=== PATIENT | female | born 1985 | race Caucasian/White ===

== ENCOUNTER 2023-12-09 02:53 | Inpatient (IN) ==
[2023-12-09] MEDS ORDERED: LIDOCAINE 1% LOCAL 20 ML VIAL INFIL PRN (03:21)
[2023-12-09] MEDS: LACTATED RINGER'S 1,000 ML IV PRN (03:30)
--- NOTE | 2023-12-09 03:52 | Obstetrical Progress Note ---
Date of Service December 09, 2023 Assessment & Plan (1) : Plan: met pt and spouse FHR; CAT1 Ctx; 1-3min VE; /0 Admit and anticipate VD Admission and Anticipated Discharge Date Admission Date: December 09, 2023 Results & Data Vital Signs (Past 12 Hours) Vital Signs Temp Pulse Resp BP 12/09/23 03:36 36.6 C 20 12/09/23 03:20 79 114/68
[2023-12-09 04:20] LABS: Hematocrit (blood only) 38.6 % (37.0-47.0); Hemoglobin 14.5 g/dl (12.0-16.0); Mean Corpuscular Hemoglobin 33.7 pg (25.0-34.0); Mean Corpuscular Hgb Conc 37.6 g/dL (32.0-36.0); Mean Corpuscular Volume 89.8 fL (80.0-100.0); Mean Platelet Volume 10.5 fL (9.4-12.4); Platelet Count 207 K/uL (130-400); RDW Coefficient of Variation 12.5 % (11.5-14.5); RDW Standard Deviation 40.8 fL (36.4-46.3)
[2023-12-09] MEDS ORDERED: BUPIVACAINE 0.25% PF 30 ML VIAL EPI PRN (04:25)
[2023-12-09] MEDS ORDERED: ePHEDrine sulfate 50 MG/ML AMP IV PRN (04:25)
[2023-12-09] MEDS ORDERED: ROPIVACAINE 0.5% PF 5 MG/ML 20 ML VIAL EPI PRN (04:25)
[2023-12-09] MEDS ORDERED: fentANYL 2 MCG/ML BUPIVacaine 0.125%-NSS 100ML BAG EPI PRN (04:25)
[2023-12-09] MEDS ORDERED: NALOXONE HCL 0.4 MG/1 ML VIAL/CARP IV PRN (04:25)
[2023-12-09] MEDS ORDERED: SODIUM CHLORIDE 0.9% PF INJ 10 ML VIAL EPI PRN (04:25)
[2023-12-09] MEDS ORDERED: fentaNYL citrate PF 100 MCG/2 ML VIAL EPI PRN (04:25)
[2023-12-09] MEDS ORDERED: NALBUPHINE HCL 5 MG in SYRINGE 0 ML IV PRN (04:25)
[2023-12-09] MEDS ORDERED: diphenhydrAMINE 50 MG/ML VIAL IV PRN (04:25)
[2023-12-09] MEDS ORDERED: NALOXONE HCL 1 MG in SODIUM CHLORIDE 0.9% 1,000 ML IV PRN (04:25)
[2023-12-09] MEDS ORDERED: LIDOCAINE 2% MPF LOCAL 5 ML VIAL EPI PRN (04:25)
--- NOTE | 2023-12-09 04:26 | Anesthesiology Consultation ---
Date of Service December 09, 2023 Assessment & Plan Chart Review Chart Review: Acceptable Risk for Labor Epidural Consults Requested none History Height/Weight Height: 5 ft 7 in Weight: 78.471 kg Allergies Allergy/AdvReac Type Severity Reaction Status Date / Time Penicillins Allergy Rash (as Verified 10/30/23 10:40 child) Medications Home Medications Medication Instructions Recorded Confirmed Last Taken 1 tab PO DAILY 10/30/23 10/30/23 Unknown Vitamin B-6 1 tab PO DAILY 10/30/23 10/30/23 Unknown calcium 1 tab PO DAILY 10/30/23 10/30/23 Unknown folic acid 1 tab PO DAILY 10/30/23 10/30/23 Unknown iron 1 tab PO DAILY 10/30/23 10/30/23 Unknown Past Medical History Medical History Anxiety and depression History of COVID-19 Early 08/2023: fever, loss of taste/smell, fatigue, congestion, cough > resolved Past Family History Family History Grandmother (Maternal) Breast cancer, Onset Age: 30 Other Diabetes Past Surgical History Surgical History H/O LEEP 11/22/18 - LUIS EDUARDO II History of [place] 2016 [place] [place] hardware used per patient History of colposcopy 10/14/18 - LUIS EDUARDO II History of hysteroscopy D&C Hx of LASIK Social History Smoking Status: Never smoker Do You Dip or Chew Tobacco: No Hx Alcohol Use: No Alcohol type: wine Hx Substance Use: No Physical Exam Vital Signs Last Vital Signs Temp 36.6 C 12/09/23 03:36 Pulse 79 12/09/23 03:20 Resp 20 12/09/23 03:36 BP 114/68 12/09/23 03:20 Testing Laboratory Results 12/09/23 04:00
[2023-12-09] MEDS: LIDOCAINE 2%/EPINEPHRINE 1:200,000 20 ML PF ONE (04:56)
[2023-12-09] MEDS: fentaNYL citrate PF 100 MCG/2 ML VIAL ONE (04:57)
[2023-12-09] MEDS: ePHEDrine sulfate 50 MG/ML AMP ONE (04:57)
[2023-12-09] MEDS: BUPIVACAINE 0.25% PF 30 ML VIAL ONE (04:57)
[2023-12-09] MEDS: SODIUM CHLORIDE 0.9% PF INJ 10 ML VIAL ONE (04:57)
[2023-12-09] MEDS: fentANYL 2 MCG/ML BUPIVacaine 0.125%-NSS 100ML BAG ONE (04:57)
[2023-12-09] MEDS ORDERED: OXYTOCIN 30 UNITS/NSS 30 UNITS/500 ML BAG IV PRN ×2 (07:11→11:26)
--- NOTE | 2023-12-09 07:52 | Obstetrical Progress Note ---
Date of Service December 09, 2023 Assessment & Plan (1) : Plan: Recurrent deep variables, possibly late decelerations Pt is on knee chest position VE; 10/100/+1 Plan Oxygen Terbutaline continue monitoring FHR Admission and Anticipated Discharge Date Admission Date: December 09, 2023 Results & Data Vital Signs (Past 12 Hours) Vital Signs Temp Pulse Resp BP Pulse Ox 12/09/23 07:47 97 12/09/23 07:47 98 H 12/09/23 07:42 98 12/09/23 07:42 82 12/09/23 07:40 55 L 12/09/23 07:40 128/59 L 12/09/23 07:37 96 12/09/23 07:37 72 12/09/23 07:32 95 12/09/23 07:32 84 12/09/23 07:27 95 12/09/23 07:27 71 12/09/23 07:22 95 12/09/23 07:22 71 12/09/23 07:22 36.7 C 70 18 106/63 95 12/09/23 07:17 98 12/09/23 07:17 70 12/09/23 07:12 96 12/09/23 07:12 71 12/09/23 07:08 66 12/09/23 07:08 109/56 L 12/09/23 07:07 98 12/09/23 07:07 66 12/09/23 07:02 98 12/09/23 07:02 83 12/09/23 06:57 99 12/09/23 06:57 150 H 12/09/23 06:55 91 H 12/09/23 06:55 106/56 L 12/09/23 06:52 99 12/09/23 06:52 101 H 12/09/23 06:47 98 12/09/23 06:47 67 12/09/23 06:42 98 12/09/23 06:42 67 12/09/23 06:38 95 H 12/09/23 06:38 115/67 12/09/23 06:37 99 12/09/23 06:37 141 H 12/09/23 06:32 98 12/09/23 06:32 76 12/09/23 06:27 96 12/09/23 06:27 145 H 12/09/23 06:24 71 12/09/23 06:24 101/63 12/09/23 06:22 97 12/09/23 06:22 78 12/09/23 06:17 97 12/09/23 06:17 70 12/09/23 06:12 96 12/09/23 06:12 94 H 12/09/23 06:07 97 12/09/23 06:07 94 H 12/09/23 06:07 112/67 12/09/23 06:02 97 12/09/23 06:02 79 12/09/23 05:57 98 12/09/23 05:57 94 H 12/09/23 05:53 156/114 H 12/09/23 05:52 95 12/09/23 05:52 72 12/09/23 05:47 97 12/09/23 05:47 91 H 12/09/23 05:42 96 12/09/23 05:42 101 H 12/09/23 05:37 96 12/09/23 05:37 93 H 12/09/23 05:37 118/64 12/09/23 05:33 94 12/09/23 05:33 118 H 12/09/23 05:32 96 12/09/23 05:32 82 12/09/23 05:27 96 12/09/23 05:27 77 12/09/23 05:23 82 12/09/23 05:23 108/68 12/09/23 05:22 96 12/09/23 05:22 87 12/09/23 05:17 96 12/09/23 05:17 72 12/09/23 05:12 97 12/09/23 05:12 76 12/09/23 05:07 99 12/09/23 05:07 75 12/09/23 05:02 100 12/09/23 05:02 65 12/09/23 05:00 18 12/09/23 05:00 37.0 C 18 12/09/23 05:00 70 12/09/23 05:00 111/66 12/09/23 04:57 100 12/09/23 04:57 62 12/09/23 04:56 63 12/09/23 04:56 124/64 12/09/23 04:52 100 12/09/23 04:52 77 12/09/23 04:51 78 03/13/24 04:51 131/70 12/09/23 04:48 90 12/09/23 04:48 132/73 12/09/23 04:47 100 12/09/23 04:47 85 12/09/23 04:45 81 12/09/23 04:45 130/75 12/09/23 04:42 100 12/09/23 04:42 95 H 12/09/23 03:36 36.6 C 20 12/09/23 03:20 79 114/68
[2023-12-09] MEDS: TERBUTALINE SULFATE 1 MG/ML VIAL SQ ONE (07:59)
--- NOTE | 2023-12-09 10:41 | Obstetrical Progress Note ---
Date of Service December 09, 2023 Assessment & Plan Admission and Anticipated Discharge Date Admission Date: December 09, 2023 Subjective I took signout from Dr. Aguilera who admitted her for labor. She is a 37-year-old G1, P0 at 40 weeks and 2 days of gestation. Her has been uncomplicated except AMA and NIPT testing was low risk. Denies medical problems and GBS negative. She has been fully dilated and was laboring down due to the variable decelerations with pushing earlier this morning. heart rate improved while laboring down and she started to have pressure. Nursing team started pushing with her about 20 minutes ago. Top of the scalp is visible with pushing. heart rate with a baseline of 140s, moderate variability, variable decels with some of the pushes with quick recovery. Continue to monitor closely, anticipate . Results & Data Vital Signs (Past 12 Hours) Vital Signs Temp Pulse Resp BP Pulse Ox 12/09/23 10:32 100 12/09/23 10:32 79 12/09/23 10:27 100 12/09/23 10:27 72 12/09/23 10:22 100 12/09/23 10:22 100 H 12/09/23 10:22 122/59 L 12/09/23 10:17 99 12/09/23 10:17 84 12/09/23 10:12 100 12/09/23 10:12 80 12/09/23 10:08 133 H 12/09/23 10:08 124/51 L 12/09/23 10:07 100 12/09/23 10:07 144 H 12/09/23 10:02 100 12/09/23 10:02 137 H 12/09/23 09:57 100 12/09/23 09:57 112 H 12/09/23 09:53 98 H 12/09/23 09:53 112/77 12/09/23 09:52 100 12/09/23 09:52 86 12/09/23 09:47 99 12/09/23 09:47 82 12/09/23 09:42 99 12/09/23 09:42 94 H 12/09/23 09:37 99 12/09/23 09:37 78 12/09/23 09:37 110/64 12/09/23 09:32 97 12/09/23 09:32 86 12/09/23 09:27 97 12/09/23 09:27 92 H 12/09/23 09:22 97 12/09/23 09:22 92 H 12/09/23 09:22 110/64 12/09/23 09:17 97 12/09/23 09:17 91 H 12/09/23 09:12 98 12/09/23 09:12 85 12/09/23 09:07 98 12/09/23 09:07 100 H 12/09/23 09:07 86 12/09/23 09:07 118/64 12/09/23 09:02 98 12/09/23 09:02 98 H 12/09/23 08:57 98 12/09/23 08:57 91 H 12/09/23 08:52 98 12/09/23 08:52 95 H 12/09/23 08:52 113/58 L 12/09/23 08:47 98 12/09/23 08:47 85 12/09/23 08:42 99 12/09/23 08:42 90 12/09/23 08:38 86 12/09/23 08:38 110/55 L 12/09/23 08:37 99 12/09/23 08:37 85 12/09/23 08:32 99 12/09/23 08:32 86 12/09/23 08:27 98 12/09/23 08:27 76 12/09/23 08:23 75 12/09/23 08:23 113/62 12/09/23 08:22 100 12/09/23 08:22 75 12/09/23 08:17 100 12/09/23 08:17 81 12/09/23 08:12 100 12/09/23 08:12 94 H 12/09/23 08:07 99 12/09/23 08:07 71 12/09/23 08:07 70 12/09/23 08:07 108/62 12/09/23 08:02 99 12/09/23 08:02 75 12/09/23 07:57 100 12/09/23 07:57 71 12/09/23 07:54 81 12/09/23 07:54 106/63 12/09/23 07:52 96 12/09/23 07:52 85 12/09/23 07:47 97 12/09/23 07:47 98 H 12/09/23 07:42 98 12/09/23 07:42 82 12/09/23 07:40 55 L 12/09/23 07:40 128/59 L 12/09/23 07:37 96 12/09/23 07:37 72 12/09/23 07:32 95 12/09/23 07:32 84 12/09/23 07:27 95 12/09/23 07:27 71 12/09/23 07:22 95 12/09/23 07:22 71 12/09/23 07:22 36.7 C 70 18 106/63 95 12/09/23 07:17 98 12/09/23 07:17 70 12/09/23 07:12 96 12/09/23 07:12 71 12/09/23 07:08 66 12/09/23 07:08 109/56 L 12/09/23 07:07 98 12/09/23 07:07 66 12/09/23 07:02 98 12/09/23 07:02 83 12/09/23 06:57 99 12/09/23 06:57 150 H 12/09/23 06:55 91 H 12/09/23 06:55 106/56 L 12/09/23 06:52 99 12/09/23 06:52 101 H 12/09/23 06:47 98 12/09/23 06:47 67 12/09/23 06:42 98 12/09/23 06:42 67 12/09/23 06:38 95 H 12/09/23 06:38 115/67 12/09/23 06:37 99 12/09/23 06:37 141 H 12/09/23 06:32 98 12/09/23 06:32 76 12/09/23 06:27 96 12/09/23 06:27 145 H 12/09/23 06:24 71 12/09/23 06:24 101/63 12/09/23 06:22 97 12/09/23 06:22 78 12/09/23 06:17 97 12/09/23 06:17 70 12/09/23 06:12 96 12/09/23 06:12 94 H 12/09/23 06:07 97 12/09/23 06:07 94 H 12/09/23 06:07 112/67 12/09/23 06:02 97 12/09/23 06:02 79 12/09/23 05:57 98 12/09/23 05:57 94 H 12/09/23 05:53 156/114 H 12/09/23 05:52 95 12/09/23 05:52 72 12/09/23 05:47 97 12/09/23 05:47 91 H 12/09/23 05:42 96 12/09/23 05:42 101 H 12/09/23 05:37 96 12/09/23 05:37 93 H 12/09/23 05:37 118/64 12/09/23 05:33 94 12/09/23 05:33 118 H 12/09/23 05:32 96 12/09/23 05:32 82 12/09/23 05:27 96 12/09/23 05:27 77 12/09/23 05:23 82 12/09/23 05:23 108/68 12/09/23 05:22 96 12/09/23 05:22 87 12/09/23 05:17 96 12/09/23 05:17 72 12/09/23 05:12 97 12/09/23 05:12 76 12/09/23 05:07 99 12/09/23 05:07 75 12/09/23 05:02 100 12/09/23 05:02 65 12/09/23 05:00 18 12/09/23 05:00 37.0 C 18 12/09/23 05:00 70 12/09/23 05:00 111/66 12/09/23 04:57 100 12/09/23 04:57 62 12/09/23 04:56 63 12/09/23 04:56 124/64 12/09/23 04:52 100 12/09/23 04:52 77 12/09/23 04:51 78 12/09/23 04:51 131/70 12/09/23 04:48 90 12/09/23 04:48 132/73 12/09/23 04:47 100 12/09/23 04:47 85 12/09/23 04:45 81 12/09/23 04:45 130/75 12/09/23 04:42 100 12/09/23 04:42 95 H 12/09/23 03:36 36.6 C 20 12/09/23 03:20 79 114/68
[2023-12-09] MEDS: OXYTOCIN 30 UNITS/NSS 30 UNITS/500 ML BAG IV PRN (11:18)
[2023-12-09] MEDS ORDERED: HYDROCORTISONE ACETATE 25 MG SUPP PR PRN (11:26)
[2023-12-09] MEDS ORDERED: bisacodyL 10 MG SUPP PR PRN (11:26)
--- NOTE | 2023-12-09 11:31 | Delivery Summary ---
Vaginal Delivery Summary Date of Service December 09, 2023 Vaginal Delivery Summary Patient was found to be fully dilated and desires to push. She pushed through irregular contractions and delivered the head in direct OP position, with 2 loose nuchals cords which were reduced and then shoulders were delivered with minimal traction at 11:08. The baby was handed off to the mother. The cord was clampedx2 and cut at 1 minute. The vagina and perineum were checked and found to have small 2nd degree perineal laceration. The vaginal mucosa was repaired with 2/0 vicryl and skin on subcuticular fashion. The placenta was delivered spontaneously as intact and complete. The uterus was explored and found to be empty. EBL was 200 ml. The fundus was firm The baby was a viable female , Apgars 8/9, the weight is pending The mother and the baby tolerated the procedure well. No complications happened and I was present during whole procedure.
--- NOTE | 2023-12-09 12:30 | Anesthesia Procedure Note ---
Date of Service December 09, 2023 Anesthesia Post Epidural Note Vital Signs Vital Signs: Temp Pulse Resp BP Pulse Ox 36.7 C 85 18 107/60 98 12/09/23 07:22 12/09/23 12:22 12/09/23 07:22 12/09/23 12:22 12/09/23 11:22 Notes Mental Status: alert / awake / arousable and participated in evaluation Patient Amnestic to Procedure: No Nausea / Vomiting: adequately controlled Pain: adequately controlled Airway Patency, RR, SpO2: stable & adequate BP & HR: stable & adequate Hydration State: stable & adequate Neuraxial Anesthesia: was administered and sensory block is resolving Anesthetic Complications: no major complications apparent and Pt Satisfied with anesthetic care Epidural: Removed without complications and With tip intact
--- OUTSIDE RECORDS SUMMARY | 2023-12-09 13:28 | External Medical Summary | Summary of Care ---
Author Name Unknown Organization [facility] Address [address] [place] [address] Phone [phone] Care Team Providers Care Medical Scientist Name Role Phone Unavailable Primary Care Provider Unavailabl e Reason for Visit * Reason Comments Return Visit Encounter Details Date Type Department Care Team (Late st Contact Info) Description 12/02/2023 9:45 AM EST Office Visit Gynecology/Obstetric s [facility] [address] [facility] [place] [id number] Tina Pritchard CRNP [address] [facility] [place] [address] Primigravida of advanced maternal age in third trimester*; Rh negative, antepartum; Normal in third trimester; COVID-19 affecting , antepartum; History of back surgery Allergies No known active allergiesdocumented as of this encounter (statuses as of 12/02/2023) Medications Medication Sig Dispensed Refills Start Date End Date Status /Folic Acid Oral Tablet Take by mouth. 0 Active Fluticasone Propionate 50 MCG/ACT Nasal Suspension (Flonase)Indications :Rhinorrhea Administer 2 Sprays into each nostril in the morning. 11.1 mL 1 09/05/2023 Active Additional Information Patient not taking.Reported on 10/01/2023 Breast PumpIndications:Norm al intrauterine , antepartum status of mother z39.1 Use as directed ABHINAV 12/07/2023 1 Each 0 11/13/2023 Active documented as of this encounter (statuses as of 12/02/2023) Active Problems Problem Noted Date Diagnosed Date COVID-19 affecting , antepartum 024 Overview: + week of 09/07/23 History of back surgery 10/01/2023 Normal 06/24/2023 Rh negative status during 05/01/2023 Overview: Received RhoGAM 05/07/23 for bleeding AMA (advanced maternal age) primigravida 35+ 10/2022 Last Assessment & Plan: I reviewed the ultrasound with her. The anatomy that was visualized appears unremarkable and the overall estimated weight is consistent with the 21st percentile for the gestational age. The amniotic fluid volume is normal at 12 cm and the fetus is in the vertex presentation. I reviewed my interpretation of her ultrasound that she had on November 25. I told her that the discrepancy in the 2 estimated weights may be simply due to the growth curves that were used. I also reviewed with her her low risk noninvasive screen and her negative maternal serum alpha fetoprotein screen in light of the normal ultrasound findings. At this point, there is no clinical indication for return. Estimated Date of Delivery Comme nts Yes 12/07/2023 Based on last me nstrual period of 03/02/2023 documented as of this encounter (statuses as of 12/02/2023) Immunizations Name Administration Dates Next Due RSV Vac., Bivalent, Perfusion F, Pf,0.5 Ml (Abry svo) 10/14/2023 TDAP (age 10 and older)(Boostrix) 09/16/2023 documented as of this encounter Social History Tobacco Use Types Packs/Day Years Used Date Smoking Tobacco: Never Smokeless Tobacco: Never Alcohol Use Standard Drinks/Week Comments Yes 0 (1 standard drink = 0.6 oz pur e alcohol) occ PHQ-2 Answer Date Recorded PHQ Adult Total Score 14 09/01/2023 Hunger Vital Sign Answer Date Recorded Within the past 12 months, y ou worried that your food would run out before you got the money to buy more. Never true 07/08/20 23 Within the past 12 months, t he food you bought just didn't last and you didn't have money to get more. Never true 07/08/2023 Conway Depression Scale Answer Date Recorded Conway Depression Scale Total 13 09/16/2023 The thought of harming myself has occurred to me . Never 09/16/2023 Estimated Date of Delivery Comme nts Yes 12/07/2023 Based on last me nstrual period of 03/02/2023 Sex and Gender Information Value Date Recorded Sex Assigned at Female 04/10/2023 9:27 AM EDT Gender Identity Female 04/10/2023 9:27 AM EDT Sexual Orientation Straight 04/10/2023 9: 27 AM EDT Job Start Date Occupation Industry Not on file Not on file Not on file documented as of this encounter Last Filed Vital Signs Vital Sign Reading Time Taken Comments Blood Pressure 100/62 12/02/2023 9:33 AM EST Pulse - - Temperature - - Respiratory Rate - - Oxygen Saturation - - Inhaled Oxygen Concentration - - Weight 80.7 kg (178 lb) 12/02/2023 9:33 AM EST Height 171.5 cm (5' 7.5") 12/02/2023 9:33 AM EST Body Mass Index 27.47 12/02/2023 9:33 AM EST documented in this encounter Progress Notes * Tina Pritchard CRNP - 12/02/2023 9:47 AM EST 39w2d Feeling nauseous since yesterday, tired as well. Recommend she rest, hydrate. Call if not improving. Had MFM appt since last visit for concern of FGR, MFM feels growth is appropriate, no need to return. Baby is active. No regular contractions, no bleeding or LOF. Asking for cervical check. Wireless Sales Associate Documentation Provider requested power plant technician. Name of power plant technician: Huyen IOL scheduled. * Huyen Samuels LPN - 12/02/2023 9:33 AM EST 39w2d Not feeling well since yesterday Nauseous documented in this encounter Plan of Treatment Upcoming Encounters Date Type Department Care Team (Late st Contact Info) Description 12/08/2023 1:30 PM EDT Office Visit Gynecology/Obstetrics [facility] [address] [place] [address] Tina Pritchard CRNP [address] [place] [address] Health Maintenance Due Date Last Done Comments Diabetes Screening 1985 Hepatitis B (1 of 3 - 19+ 3- dose series) 12/28/2003 COVID-19 Vaccine (2022-2 4 season) 2023 Influenza Vaccine (FLU shot) (#1) 2023 Depression, Most Recent Scor e >= 10 (will fire each visit until score < 10) 09/02/2023 09/01/2023 Pap Smear 04/29/2026 04/29/2023 Cervical Cancer Screening 04/29/2028 HPV/Co-Test 04/29/2028 04/29/2023 DTaP,Tdap,and Td Vaccines (2 - Td or Tdap) 09/16/2033 09/16/2023 GARDASIL-HPV IMMUNIZATION SERIES Aged Out No longer eligible based on patient's age to complete this topic MENINGOCOCCAL (MENACTRA/MENVEO) Aged Out No longer eligible based on patient's age to complete this topic Pneumococcal Vaccine: Pediat rics (0 to 5 Years) and At-Risk Patients (6 to 64 Years) Aged Out No longer eligi ble based on patient's age to complete this topic documented as of this encounter Medical Devices Not on filedocumented as of this encounter Visit Diagnoses Diagnosis Primigravida of advanced maternal age in third trimester- Primary Rh negative, antepartum Rhesus isoimmunization affecting management of mother, antepartum condition Normal in third trimester COVID-19 affecting , antepartum History of back surgery Other postprocedural status documented in this encounter
--- OUTSIDE RECORDS SUMMARY | 2023-12-09 13:28 | External Medical Summary | Summary of Care ---
Author Name Unknown Organization [facility] Address [address] [place] [address] Phone [phone] Care Team Providers Care Chief Compliance Officer Name Role Phone Unavailable Primary Care Provider Unavailabl e Reason for Visit * Reason Comments Return Visit Encounter Details Date Type Department Care Team (Late st Contact Info) Description 12/08/2023 1:30 PM EDT Office Visit Gynecology/Obstetric s [facility] [address] [place] [address] Tina Pritchard CRNP [address] [place] [address] Primigravida of advanced maternal age in third trimester*; Rh negative status during in third trimester; Normal in third trimester; COVID-19 affecting , antepartum; History of back surgery; Post-term , 40-42 weeks of gestation Allergies No known active allergiesdocumented as of this encounter (statuses as of 12/08/2023) Medications Medication Sig Dispensed Refills Start Date [...] as of this encounter (statuses as of 12/08/2023) Active Problems Problem Noted Date Diagnosed Date [...] as of this encounter (statuses as of 12/08/2023) Immunizations Name Administration Dates Next Due RSV [...] money to get more. Never true 07/08/2023 Sherburn Depression Scale Answer Date Recorded Sherburn Depression Scale Total 13 09/16/2023 The thought [...] Sign Reading Time Taken Comments Blood Pressure 104/62 12/08/2023 1:20 PM EDT Pulse - - Temperature - - Respiratory Rate - - Oxygen Saturation - - Inhaled Oxygen Concentration - - Weight 80.3 kg (177 lb) 12/08/2023 1:20 PM EDT Height 171.5 cm (5' 7.5") 12/08/2023 1:20 PM EDT Body Mass Index 27.31 12/08/2023 1:20 PM EDT documented in this encounter Progress Notes * Tina Pritchard CRNP - 12/08/2023 1:37 PM EDT 40w1d Feeling pelvic pressure, random nausea. Baby is active. No contractions, bleeding, LOF. Has IOL 12/14. Discussed NST/BRAYDEN next Thursday for postdates. Tea Bag Packer Documentation Provider requested steel turner. Name of steel turner: EBNNY Ernst * Huyen Samuels LPN - 12/08/2023 1:20 PM EDT 40w1d Having increase in SOB documented in this encounter Plan of Treatment Upcoming Encounters Date Type Department Care Team (Late st Contact Info) Description 12/14/2023 11:30 AM EDT Imaging Radiology [facility] 2nd [facility] [address] [place] [address] 12/15/2023 7:30 AM EDT Office Visit Non [facility], Operating Room, [facility] [address] [place] [address] Ranjit Escoto MD [address] [place] [address] Scheduled Orders Name Type Priority Associated Diagnoses Orde r Schedule US PREG LIMITED 1 OR MORE FETUSES Medical Imaging Routine Post-term , 40-42 weeks of gestation Expected: 12/15/2023 (Approximate), Expires: 01/07/2025 Health Maintenance Due Date Last Done Comments [...] maternal age in third trimester- Primary Rh negative status during in third trimester Normal in third trimester COVID-19 affecting , antepartum History of back surgery Other postprocedural status Post-term , 40-42 weeks of gestation Post term , unspecified episode of care documented in this encounter
--- OUTSIDE RECORDS SUMMARY | 2023-12-09 13:29 | External Medical Summary | Summary of Care ---
Author Name Unknown Organization [facility] Address [address] [place] [address] Phone [phone] Care Team Providers Care Dye Colorist Formulator Name Role Phone Unavailable Primary Care Provider Unavailabl e Reason for Visit * Reason Comments Return Visit Encounter Details Date Type Department Care Team (Late st Contact Info) Description 11/25/2023 8:00 AM EST Office Visit Gynecology/Obstetric s Enmanuel Campuzano [address] [facility] [place] [address] Tina Pritchard CRNP [address] [facility] [address] Primigravida of advanced maternal age in third trimester*; Rh negative, antepartum; Normal in third trimester; COVID-19 affecting , antepartum; History of back surgery; Uterine size date discrepancy ; Other specified related conditions, third trimester Allergies No known active allergiesdocumented as of this encounter (statuses as of 11/25/2023) Medications Medication Sig Dispensed Refills Start Date [...] as of this encounter (statuses as of 11/25/2023) Active Problems Problem Noted Date Diagnosed Date COVID-19 affecting , antepartum 024 Overview: + week of 09/07/23 History of back surgery 10/01/2023 Normal 06/24/2023 Rh negative status during 05/01/2023 Overview: Received RhoGAM 05/07/23 for bleeding AMA (advanced maternal age) primigravida 35+ 10/2022 Estimated Date of Delivery Comme nts Yes 12/07/2023 Based on last me nstrual period of 03/02/2023 documented as of this encounter (statuses as of 11/25/2023) Immunizations Name Administration Dates Next Due RSV [...] money to buy more. Never true 07/08/20 Within the past 12 months, t he food you bought just didn't last and you didn't have money to get more. Never true 07/08/2023 [place] Depression Scale Answer Date Recorded [place] Depression Scale Total 13 09/16/2023 The thought [...] Sign Reading Time Taken Comments Blood Pressure 110/64 11/25/2023 8:00 AM EST Pulse - - Temperature - - Respiratory Rate - - Oxygen Saturation - - Inhaled Oxygen Concentration - - Weight 79.9 kg (176 lb 3.2 oz) 11/25/2023 8:00 A M EST Height 171.5 cm (5' 7.5") 11/25/2023 8:00 AM EST Body Mass Index 27.19 11/25/2023 8:00 AM EST documented in this encounter Progress Notes * Tina Pritchard CRNP - 11/25/2023 8:11 AM EST 38w2d ?BH contractions at times. Baby is active. No bleeding or LOF. Size<dates, growth u/s ordered. BENNY Tirado documented in this encounter Nursing Notes * Lillie Avery RN - 11/25/2023 8:01 AM EST Patient here for BRAXTON 38w2d + FM [place] armando contractions No bleeding/leaking documented in this encounter Plan of Treatment Upcoming Encounters Date Type Department Care Team (Late st Contact Info) Description 11/25/2023 10:45 AM EST Imaging Radiology [facility] 2nd [facility] [address] [place] [address] 12/02/2023 9:45 AM EST Office Visit Gynecology/Obstetrics [facility] [address] [place] [address] Tina Pritchard CRNP [address] [place] [address] Scheduled Orders Name Type Priority Associated Diagnoses Orde r Schedule US PREG FOLLOW-UP EACH FETUS Medical Imaging Routine Uterine size date discrepancy Other specified related conditions, third trimester Expected: 11/25/2023 (Approximate), Expires: 12/23/2024 Health Maintenance Due Date Last Done Comments Diabetes Screening 1984 Hepatitis B (1 of 3 - 19+ 3- dose series) 12/28/2003 COVID-19 Vaccine ( - 2022-2 4 season) 2023 Influenza Vaccine (FLU shot) [...] History of back surgery Other postprocedural status Uterine size date discrepancy Uterine size date discrepancy, antepartum condition or complication Other specified related conditions, third trimester documented in this encounter
--- OUTSIDE RECORDS SUMMARY | 2023-12-09 13:29 | External Medical Summary | Summary of Care ---
Author Name Unknown Organization [facility] Address [address] [place] [address] Phone [phone] Care Team Providers Care Dielectric Testing Machine Operator Name Role Phone Unavailable Primary Care Provider Unavailabl e Reason for Visit * Reason Comments Ultrasound * Evaluate & Treat - Unlimited Visits (Within 3 days (urgent)) - Pending Review Specialty Diagnoses / Procedures Referred By Priya t Referred To Contact Obstetrics/Gynecology / Maternal Medicine Diagnoses growth restriction antepartum Tina Pritchard CRNP [address] [place] [address] Referral ID Status Reason Start Date Expiration Date Visits Requested Visits Authorized [id number] Pending Review Specialty Services Required 11/25/[phone] Encounter Details Date Type Department Care Team (Late st Contact Info) Description 11/27/2023 1:00 PM EST Office Visit Marbleizing Machine Tender Obstetrics [facility], [place] [address] [place] [address] Jimy Washington MD [address] [place], [place] [phone] Primigravida of advanced maternal age in third trimester*; Encounter for supervision of other normal , third trimester Allergies No known active allergiesdocumented as of this encounter (statuses as of 11/27/2023) Medications Medication Sig Dispensed Refills Start Date [...] as of this encounter (statuses as of 11/27/2023) Active Problems Problem Noted Date Diagnosed Date [...] as of this encounter (statuses as of 11/27/2023) Immunizations Name Administration Dates Next Due RSV [...] money to get more. Never true 07/08/2023 [place] Depression Scale Answer Date Recorded [place] Depression Scale Total 13 09/16/2023 The thought [...] on file documented as of this encounter Progress Notes * Jimy Washington MD - 11/27/2023 12:51 PM EST MATERNAL MEDICINE VISIT Marycruz Hill is at 38w4d who presents to [facility] for an ultrasound and follow-up of her high risk . The patient is currently 38 weeks and 4 days gestation who had an ultrasound at an outside hospitalon November 25 that showed the abdominal circumference be consistent with the 5th percentile for the gestational age. I did review this ultrasound and agree with this assessment. Of note, she has a low risk noninvasive screen and a negative maternal serum AFP screen during this . She is being seen today by Maternal- Medicine for the following reasons: Problem List Items Addressed This Visit AMA (advanced maternal age) primigravida 35+ - Primary I reviewed the ultrasound with her. The [...] there is no clinical indication for return. We reviewed today's ultrasound findings. (For full report, please refer to ultrasound report provided separately). Ms. Hill's questions were answered to her satisfaction. Ms. Hill was instructed to notify her primary strapping machine operator if she felt regular contractions (approximately every 10 mins), leaking of fluid, vaginal bleeding or if movement decreased. Thank you for allowing us to participate in the care of this patient. Please call with any questions. Jimy Washington MD 11/27/2023 12:51 PM documented in this encounter Miscellaneous Notes * Assessment & Plan Note - Jimy Washington MD - 11/27/2023 1:30 PM EST Associated Problem(s): AMA (advanced maternal age) primigravida 35+ I reviewed the ultrasound with her. The [...] there is no clinical indication for return. documented in this encounter Plan of Treatment Upcoming Encounters Date Type Department Care Team (Late st Contact Info) Description 12/02/2023 9:45 AM EST Office Visit Gynecology/Obstetrics [facility] Campuzano [address] [place] [address] Tina Pritchard CRNP [address] [place] [address] Scheduled Orders Name Type Priority Associated Diagnoses Orde r Schedule MFM US PREG FOLLOW UP EACH FETUS Medical Imaging Routine Primigravida of advanced maternal age in third trimester Encounter for supervision of other normal , third trimester 6 Occurrences starting 11/27/2023 until 05/29/2024 Health Maintenance Due Date Last Done Comments [...] advanced maternal age in third trimester- Primary Encounter for supervision of other normal , third trimester documented in this encounter
--- OUTSIDE RECORDS SUMMARY | 2023-12-09 13:29 | External Medical Summary | Summary of Care ---
Author Name Unknown Organization [facility] Address [address] [place] [address] Phone [phone] Care Team Providers Care Chemistry Account Manager Name Role Phone Unavailable Primary Care Provider Unavailabl e Reason for Visit * Reason Comments Ultrasound * Evaluate & Treat - Unlimited Visits (Within 3 days (urgent)) - Pending Review Specialty Diagnoses / Procedures Referred By Priya t Referred To Contact Obstetrics/Gynecology / Maternal Medicine Diagnoses growth restriction antepartum Tina Pritchard CRNP [address] [place] [address] Referral ID Status Reason Start Date Expiration Date Visits Requested Visits Authorized [id number] Pending Review Specialty Services Required 11/25/[phone] Encounter Details Date Type Department Care Team (Late st Contact Info) Description 11/27/2023 1:00 PM EST Office Visit Bath Tester Obstetrics [facility], [place] [address] [place] [address] Jimy Washington MD [address] [place], [place] [phone] Primigravida of advanced maternal age in third [...] money to get more. Never true 07/08/2023 [place] Depression Scale Answer Date Recorded [place] Depression Scale Total 13 09/16/2023 The thought [...] Hill is at 38w4d who presents to [facility] for an ultrasound and follow-up of her [...] Hill was instructed to notify her primary gang pusher if she felt regular contractions (approximately every [...] 12/02/2023 9:45 AM EST Office Visit Gynecology/Obstetrics Alvarezk[facility]y Campuzano [address] [place] [address] Tina Pritchard CRNP [address] [place] [address] Scheduled Orders Name Type Priority Associated Diagnoses [...]
--- OUTSIDE RECORDS SUMMARY | 2023-12-09 13:29 | External Medical Summary | Summary of Care ---
Author Name Unknown Organization [facility] Address [address] [place] [address] Phone [phone] Care Team Providers Care City Auditor Name Role Phone Unavailable Primary Care Provider Unavailabl e Reason for Visit * Reason Comments Return Visit Encounter Details Date Type Department Care Team (Late st Contact Info) Description 11/19/2023 1:30 PM EST Office Visit Gynecology/Obstetric [facility] [address] [facility] [place] [address] Lisa Bryant CNM [address] [place] [address] Advanced maternal age, primigravida, antepartum*; Normal in third trimester Allergies No known active allergiesdocumented as of this encounter (statuses as of 11/19/2023) Medications Medication Sig Dispensed Refills Start Date [...] as of this encounter (statuses as of 11/19/2023) Active Problems Problem Noted Date Diagnosed Date [...] as of this encounter (statuses as of 11/19/2023) Immunizations Name Administration Dates Next Due RSV [...] money to get more. Never true 07/08/2023 [place] Depression Scale Answer Date Recorded [place] Depression Scale Total 13 09/16/2023 The thought [...] Sign Reading Time Taken Comments Blood Pressure 108/72 11/19/2023 1:20 PM EST Pulse - - Temperature - - Respiratory Rate - - Oxygen Saturation - - Inhaled Oxygen Concentration - - Weight 81.2 kg (179 lb) 11/19/2023 1:20 PM EST Height 171.5 cm (5' 7.52") 11/19/2023 1:20 PM ES T Body Mass Index 27.61 11/19/2023 1:20 PM EST documented in this encounter Progress Notes * Lisa Bryant CNM - 11/19/2023 1:30 PM EST Marycruz Hill is a 37 year old female here for her routine OB appointment at 37w3d Her Estimated Date of Delivery: 12/07/23 REVIEW OF SYSTEMS: She affirms movement. Denies vaginal bleeding, LOF, contractions, N/V, headaches PHYSICAL EXAM: Filed Vitals: 11/19/23 1320 BP: 108/72 Weight: 81.2 kg (179 lb) Height: 1.715 m (5' 7.52") +FHT 130 ASSESSMENT/PLAN: 1. AMA (advanced maternal age) primigravida 35+ 2. Normal - labor precautions and kick counts reviewed - RTO in 1 week Lisa Bryant CNM documented in this encounter Nursing Notes * Liane Sullivan LPN - 11/19/2023 1:24 PM EST 37w3d Denies concerns. documented in this encounter Plan of Treatment Upcoming Encounters Date Type Department Care Team (Late st Contact Info) Description 11/25/2023 8:00 AM EST [facility] [address] [place] [address] Tina Pritchard CRNP [address] [place] [address] 12/02/2023 9:45 AM EST Office Visit Gynecology/Obstetrics Enmanuel Campuzano [address] [place] [address] Tina Pritchard CRNP [address] [place] [address] Health Maintenance Due Date Last Done Comments [...] as of this encounter Visit Diagnoses Diagnosis Advanced maternal age, primigravida, antepartum- Primary Elderly primigravida, antepartum Normal in third trimester documented in this encounter
--- OUTSIDE RECORDS SUMMARY | 2023-12-09 13:29 | External Medical Summary | Summary of Care ---
Author Name Unknown Organization [facility] Address [address] [place] [address] Phone [phone] Care Team Providers Care Journeyman Operator Assistant Name Role Phone Unavailable Primary Care Provider Unavailabl e Reason for Visit * Reason Comments Return Visit Encounter Details Date Type Department Care Team (Late st Contact Info) Description 11/13/2023 4:00 PM EST Office Visit Gynecology/Obstetric s [facility] [address] [place] [address] Shruti Navarro, DNP, CNM [address] [place], [place] [phone] Advanced maternal age, primigravida, antepartum*; Normal intrauterine , antepartum; COVID-19 affecting , antepartum; History of back surgery Allergies No known active allergiesdocumented as of this encounter (statuses as of 11/16/2023) Medications Medication Sig Dispensed Refills Start Date [...] as of this encounter (statuses as of 11/16/2023) Active Problems Problem Noted Date Diagnosed Date [...] as of this encounter (statuses as of 11/16/2023) Immunizations Name Administration Dates Next Due RSV [...] money to get more. Never true 07/08/2023 [place] Depression Scale Answer Date Recorded [place] Depression Scale Total 13 09/16/2023 The thought [...] Sign Reading Time Taken Comments Blood Pressure 94/60 11/13/2023 3:57 PM EST Pulse - - Temperature - - Respiratory Rate - - Oxygen Saturation - - Inhaled Oxygen Concentration - - Weight 80.7 kg (178 lb) 11/13/2023 3:57 PM EST Height - - Body Mass Index 27.45 10/27/2023 11:35 AM EST documented in this encounter Progress Notes * Shruti Navarro DNP, CNM - 11/13/2023 4:18 PM EST Marycruz Hill is a 37 year old female here for her routine OB appointment at 36w4d Her Estimated Date of Delivery: 12/07/23 REVIEW OF SYSTEMS: She affirms movement. Denies vaginal bleeding, LOF, contractions, N/V, headaches Completed [facility] tour and class. Condoms for pp contraception PHYSICAL EXAM: Filed Vitals: 11/13/23 1557 BP: 94/60 Weight: 80.7 kg (178 lb) +FHT 140 Fundal height 36cm ASSESSMENT/PLAN: (O09.519) AMA (advanced maternal age) primigravida 35+ (primary encounter diagnosis) Plan: - condoms for pp contraception - Breast - Doing well (Z34.90) Normal Plan: GROUP B STREP CULTURE/PCR, Breast Pump (O98.519, U07.1) COVID-19 affecting , antepartum Plan: Had growth US 10/14/23- WNL - recommended flu vaccine - patient declines today -Reviewed labor precautions, kick counts, loss of fluid, vaginal bleeding, round ligament pain, and encouraged hydration. - GBS swab collected today Cottrell Blower Documentation Provider requested commissioning agent. Name of commissioning agent: Frida Mckeon LPN - RTO in 1 week Shruti Navarro DNP, CNM documented in this encounter Plan of Treatment Upcoming Encounters Date Type Department Care Team (Late st Contact Info) Description 11/19/2023 1:30 PM EST Office Visit Gynecology/Obstetrics [address] [place] [address] Lisa Bryant CNM [address] [place] [address] 11/25/2023 8:00 AM EST Office Visit Gynecology/Obstetrics [facility] [address] [facility] [place] [address] Tina Pritchard CRNP [address] [place] [address] 12/02/2023 9:45 AM EST Office Visit Gynecology/Obstetrics [facility] [address] [place] [address] Tina Pritchard CRNP [address] [place] [address] Health Maintenance Due Date Last Done Comments [...] Not on filedocumented as of this encounter Procedures Procedure Name Priority Date/Time Associated Diagnosis Comments GROUP B STREP CULTURE/PCR Routine 11/13/2023 4:28 PM EST Normal intrauterine , antepartum documented in this encounter Results * GROUP B STREP CULTURE/PCR (11/13/2023 4:28 PM EST) Group B Strep PCR Result Negative Negative 11/14/2023 9:22 PM EST [facility] [place] Comment: No Group B Streptococcus detected by culture-enhanced PCR (amplified probe). The collection of vaginal/rectal swab specimen combinations (FDA approved specimen type) is optimal for the detection of Group B Streptococcus. Single source collection (vaginal only or rectal only) or alternate specimen sources may lead to false negative results. Swab Rectum and vagina, CS / Unknown 11/13/2023 4:28 PM EST 11/13/2023 4:28 PM EST Shruti Navarro DNP, CNM LAB MICRO - GENE RAL ORDERABLES [facility] [place] [address] [place] [address] documented in this encounter Visit Diagnoses Diagnosis Advanced maternal age, primigravida, antepartum- Primary Elderly primigravida, antepartum Normal intrauterine , antepartum COVID-19 affecting , antepartum History of back surgery Other postprocedural status documented in this encounter
--- OUTSIDE RECORDS SUMMARY | 2023-12-09 13:30 | External Medical Summary ---
Author Name Unknown Address Unknown Organization K01:[facility] [place] [address] [place] [address] [address] Laboratory Report Ordering Provider Test Date Status TOBIAS OVERTON 11/13/2023 16:28:32 Final Observation Date Value Abnormality Reference (Units ) Status Streptococcus agalactiae DNA [Presence] in Specimen by KEL with probe detection 11/13/2023 16:28:32 Negative Negative Final No Group B Streptococcus det ected by culture-enhanced PCR (amplified probe).
The collection of vaginal/rectal swab specimen combinations (FDA approved specimen type) is optimal for the detection of Group B Streptococcus. Single source collection (vaginal only or rectal only) or alternate specimen sources may lead to false negative results. Performing Location [facility] [place] [address] [address]
--- OUTSIDE RECORDS SUMMARY | 2023-12-09 13:30 | External Medical Summary | Summary of Care ---
Author Name Unknown Organization [facility] Address [address] [place] [address] Phone [phone] Care Team Providers Care Steel Fitter Name Role Phone Unavailable Primary Care Provider Unavailabl e Reason for Visit * Reason Comments Return Visit Encounter Details Date Type Department Care Team (Late st Contact Info) Description 11/13/2023 4:00 PM EST Office Visit Gynecology/Obstetric s [facility] [address] [place] [address] Shruti Navarro, DNP, CNM [address] [place], [place] [phone] Advanced maternal age, primigravida, antepartum*; Normal intrauterine , antepartum; COVID-19 affecting , antepartum; History of back surgery Allergies No known active allergiesdocumented as of this encounter (statuses as of 11/13/2023) Medications Medication Sig Dispensed Refills Start Date [...] as of this encounter (statuses as of 11/13/2023) Active Problems Problem Noted Date Diagnosed Date [...] as of this encounter (statuses as of 11/13/2023) Immunizations Name Administration Dates Next Due RSV [...] money to get more. Never true 07/08/2023 [place] Depression Scale Answer Date Recorded [place] Depression Scale Total 13 09/16/2023 The thought [...] vaginal bleeding, LOF, contractions, N/V, headaches Completed [facility] tour and class. Condoms for pp [...] encouraged hydration. - GBS swab collected today Stock Digger Documentation Provider requested straight cutter machine. Name of straight cutter machine: Frida Mckeon LPN - RTO in 1 week Shruti Navarro DNP, CNM documented in this encounter Plan of Treatment Upcoming Encounters Date Type Department Care Team (Late st Contact Info) Description 11/19/2023 1:30 PM EST Office Visit Gynecology/Obstetrics [address] [place] [address] Lisa Bryant CNM [address] [place] [address] 11/25/2023 8:00 AM EST Office Visit Gynecology/Obstetrics [facility] [address] [facility] [place] [address] Tina Pritchard CRNP [address] [place] [address] 12/02/2023 9:45 AM EST Office Visit Gynecology/Obstetrics [facility] [address] [facility] [place] [address] Tina Pritchard CRNP [address] [facility] [place] [address] Pending Results Name Type Priority Associated Diagnoses Date /Time GROUP B STREP CULTURE/PCR Lab Routine Normal intrauterine , antepartum 11/13/2023 4:28 PM EST Health Maintenance Due Date Last Done Comments [...]
[2023-12-09] MEDS: IBUPROFEN 600 MG TAB PO PRN (15:55)
[2023-12-09] MEDS: LIDOCAINE 2%/EPINEPHRINE 1:200,000 20 ML PF EPI STA (16:43)
[2023-12-09] MEDS: fentaNYL citrate PF 100 MCG/2 ML VIAL EPI STA (16:43)
[2023-12-09] MEDS: BUPIVACAINE 0.25% PF 30 ML VIAL EPI STA (16:43)
[2023-12-09] MEDS: SODIUM CHLORIDE 0.9% PF INJ 10 ML VIAL EPI STA (16:44)
[2023-12-09] MEDS: DOCUSATE SODIUM 100 MG CAP PO SCH (19:43)
[2023-12-10 06:43] LABS: Hematocrit (blood only) 33.8 % (37.0-47.0); Hemoglobin 11.7 g/dl (12.0-16.0); Mean Corpuscular Hemoglobin 33.1 pg (25.0-34.0); Mean Corpuscular Hgb Conc 34.6 g/dL (32.0-36.0); Mean Corpuscular Volume 95.8 fL (80.0-100.0); Mean Platelet Volume 10.6 fL (9.4-12.4); Platelet Count 150 K/uL (130-400); RDW Coefficient of Variation 13.1 % (11.5-14.5); RDW Standard Deviation 45.7 fL (36.4-46.3); Red Blood Count 3.53 M/uL (4.20-5.40); White Blood Count 14.47 K/ul (4.8-10.8)
[2023-12-10] MEDS: MEASLES, MUMPS & RUBELLA VIRUS VACCINE (MMR) VIAL SQ ONE (07:09)
[2023-12-10] MEDS: FERROUS SULFATE 325 MG TAB PO SCH (08:23)
[2023-12-10] MEDS: PRENATAL VITAMIN 1 TAB PO SCH (08:23)
[2023-12-10] MEDS: DIPHTHER/TETAN/PERTUS Vaccine (Tdap, Adol/Adult) 0.5mL IM ONE (08:24)
[2023-12-10] MEDS: BENZOCAINE 20% SPRY 85 APPLN/85 GM CAN EXT PRN (10:01)
--- NOTE | 2023-12-10 10:57 | Obstetrical Progress Note ---
Date of Service December 10, 2023 Assessment & Plan (1) Normal course: PPD #1 pt doing well anticipate disch tomorrow Results & Data Vital Signs (Past 12 Hours) Vital Signs Temp Pulse Pulse Resp BP BP Pulse Ox 12/10/23 09:54 36.4 C L 80 16 104/58 L 98 12/10/23 08:15 36.4 C L 54 L 16 104/63 12/10/23 04:20 36.7 C 63 16 110/76 98 12/10/23 00:15 36.9 C 69 16 108/68 97 O2 Del Method 12/10/23 09:54 12/10/23 08:15 Room Air 12/10/23 04:20 Room Air 12/10/23 00:15 Room Air
[2023-12-10] MEDS: bisacodyL 5 MG TABEC PO SCH (20:06)
[2023-12-10 21:12] VITALS: RESP 16
[2023-12-11 07:56] LABS: Hematocrit (blood only) 33.6 % (37.0-47.0); Hemoglobin 11.4 g/dl (12.0-16.0)
--- NOTE | 2023-12-11 08:36 | Obstetrical Progress Note ---
Date of Service December 11, 2023 Assessment & Plan Admission and Anticipated Discharge Date Admission Date: December 09, 2023 Subjective Patient is seen and examined. She feels well, no complaints. Ambulating without dizziness Voiding without difficulty Tolerating regular diet with out N&V Bleeding is minimal No fever/ chills/ CP/ SOB/ N&V/ Leg pain Breast feeding without problems Vital Signs Temp Pulse Resp BP Pulse Ox O2 Del Method 12/10/23 23:50 36.8 C 68 16 106/68 96 Room Air Lab Results 12/09/23 12/10/23 12/10/23 Range/Units 04:00 06:04 07:35 WBC 12.70 H 14.47 H (4.8-10.8) K/ul RBC 4.30 3.53 L (4.20-5.40) M/uL Hgb 14.5 11.7 L (12.0-16.0) g/dl Hct 38.6 33.8 L (37.0-47.0) % MCV 89.8 95.8 D (80.0-100.0) fL MCH 33.7 33.1 (25.0-34.0) pg MCHC 37.6 H 34.6 (32.0-36.0) g/dL RDW Std Deviation 40.8 45.7 (36.4-46.3) fL RDW Coeff of Genesis 12.5 13.1 (11.5-14.5) % Plt Count 207 150 (130-400) K/uL MPV 10.5 10.6 (9.4-12.4) fL Blood Type A Negative Antibody Screen NEGATIVE Screen Negative (Negative) 12/11/23 Range/Units 07:28 WBC (4.8-10.8) K/ul RBC (4.20-5.40) M/uL Hgb 11.4 L (12.0-16.0) g/dl Hct 33.6 L (37.0-47.0) % MCV (80.0-100.0) fL MCH (25.0-34.0) pg MCHC (32.0-36.0) g/dL RDW Std Deviation (36.4-46.3) fL RDW Coeff of Genesis (11.5-14.5) % Plt Count (130-400) K/uL MPV (9.4-12.4) fL Blood Type Antibody Screen Screen (Negative) PE: General: Alert, orientedx3, NAD Abd: soft, NT, fundus firm, below Umbilicus Perineum intact, Lochia rubra minimal Ext; NT, no edema AP: 37 yo s/p , ppd# 1 VSS Afebrile doing well Continue routine care All questions were answered D/C home , f/u in office Results & Data Vital Signs (Past 12 Hours) Vital Signs Temp Pulse Resp BP Pulse Ox O2 Del Method 12/10/23 23:50 36.8 C 68 16 106/68 96 Room Air
[2023-12-11] MEDS: ACETAMINOPHEN 325 MG TAB PO PRN (09:03)
[2023-12-11 09:36] VITALS: BP 109/72; PULSE 69; TEMP 97.9; O2SAT 97
== END 2023-12-11 16:57 | disposition home or self-care (01) | DRG 807 ==
LOC: OPB 02:53 → 4S1 02:55 → 4E2 14:44
DX: O09.513 Supervision of elderly primigravida, third trimester; Z3A.40 40 weeks gestation of pregnancy; Z37.0 Single live birth; O76 Abnormality in fetal heart rate and rhythm complicating labor and delivery; Z88.0 Allergy status to penicillin; O69.81X0 Labor and delivery complicated by cord around neck, without compression, not applicable or unspecified; O70.1 Second degree perineal laceration during delivery; Z79.899 Other long term (current) drug therapy

== ENCOUNTER 2025-07-15 05:40 | Inpatient (IN) ==
[2025-07-15] MEDS ORDERED: LIDOCAINE 1% LOCAL 20 ML VIAL INFIL PRN (05:58)
[2025-07-15] MEDS ORDERED: ROPIVACAINE 0.5% PF 5 MG/ML 20 ML VIAL EPI PRN (06:29)
[2025-07-15] MEDS ORDERED: SODIUM CHLORIDE 0.9% PF INJ 10 ML VIAL EPI PRN (06:29)
[2025-07-15] MEDS ORDERED: NALBUPHINE HCL INJ 10 MG/ML AMP IV PRN (06:29)
[2025-07-15] MEDS ORDERED: NALOXONE HCL 0.4 MG/1 ML VIAL/CARP IV PRN (06:29)
[2025-07-15] MEDS ORDERED: LIDOCAINE 2% MPF LOCAL 5 ML VIAL EPI PRN (06:29)
[2025-07-15] MEDS ORDERED: ONDANSETRON INJ 2 MG/ML 2 ML VIAL IV PRN (06:29)
[2025-07-15] MEDS ORDERED: BUPIVACAINE 0.25% PF 30 ML VIAL EPI PRN (06:29)
[2025-07-15] MEDS ORDERED: NALOXONE HCL 1 MG in SODIUM CHLORIDE 0.9% 1,000 ML IV PRN (06:29)
[2025-07-15] MEDS ORDERED: diphenhydrAMINE 50 MG/ML VIAL IV PRN (06:29)
[2025-07-15 06:30] LABS: Hematocrit (blood only) 39.3 % (37.0-47.0); Hemoglobin 13.9 g/dl (12.0-16.0); Mean Corpuscular Hemoglobin 31.7 pg (25.0-34.0); Mean Corpuscular Volume 89.5 fL (80.0-100.0); Platelet Count 213 K/uL (130-400); RDW Standard Deviation 41.3 fL (36.4-46.3); Red Blood Count 4.39 M/uL (4.20-5.40); White Blood Count 11.46 K/ul (4.8-10.8)
[2025-07-15] MEDS: LACTATED RINGER'S 1,000 ML IV PRN (06:31)
--- NOTE | 2025-07-15 06:31 | Anesthesiology Consultation ---
Date of Service July 15, 2025 Assessment & Plan (1) Encounter for pre-operative examination: Chart Review Chart Review: Patient NOT seen in Pre Admission Testing and Acceptable Risk for Labor Epidural Consults Requested none History Height/Weight Height: 5 ft 5 in Weight: 83 kg Allergies Allergy/AdvReac Type Severity Reaction Status Date / Time Penicillins Allergy Rash (as Verified 07/14/25 14:19 child) Medications Home Medications Medication Instructions Recorded Confirmed Last Taken vits no.124-ferrous fum 1 tab PO DAILY@08 #90 tabs 12/10/23 07/15/25 03/23/25 08:00 27 mg iron-folic acid 800 mcg tablet ( Vitamin) calcium carbonate 500 mg PO DAILY 04/20/25 07/15/25 Unknown ferrous sulfate 325 mg (65 mg 325 mg PO DAILY 04/20/25 07/15/25 Unknown iron) tablet (FeroSul) folic acid 1 mg tablet 1 mg PO DAILY 04/20/25 07/15/25 Unknown pyridoxine (vitamin B6) 10 mg 10 mg PO DAILY 04/20/25 07/15/25 Unknown tablet Active Medications Generic Name Dose Route Start Last Admin Trade Name Freq PRN Reason Stop Dose Admin Lactated Ringer's 1,000 mls @ 125 mls/hr 07/15/25 05:58 07/15/25 06:31 Lr IV 07/17/25 05:57 999 mls/hr .Q8H PRN Administration L&D Protocol Protocol Past Medical History Medical History (Updated 07/15/25 @ 06:31 by Mal Clark MD) Encounter for pre-operative examination Low grade squamous intraepithelial lesion (LGSIL) on cervical Pap smear Cervical intraepithelial neoplasia grade 2 Anxiety and depression History of COVID-19 Early 08/2023: fever, loss of taste/smell, fatigue, congestion, cough > resolved Exercise / Class Metabolic Activity II 4-5 Yardwork/Stairs/Walk up hill Past Family History Family History Grandmother (Maternal) Breast cancer, Onset Age: 30 Mother Ovarian cancer Father Prostate cancer Other Diabetes Denies family history of Colorectal cancer Past Surgical History Surgical History H/O laminectomy History of egg donation puncture retrieval of oocyte (2014) Status post lumbar spine surgery for decompression of spinal cord 2019 Hx of LASIK History of back surgery 2016 (done in [place]), 2019 ([facility] [place]) No hardware used per patient History of hysteroscopy D&C H/O LEEP 11/22/18 - LUIS EDUARDO II History of colposcopy 10/14/18 - LUIS EDUARDO II Social History Smoking Status: Never smoker Do You Dip or Chew Tobacco: No Hx Alcohol Use: No Alcohol type: wine Hx Substance Use: No Physical Exam Vital Signs Last Vital Signs Temp 36.4 C L 07/15/25 06:18 Pulse 64 07/15/25 06:54 Resp 18 07/15/25 06:18 BP 104/61 07/15/25 06:18 Pulse Ox 99 07/15/25 06:54 Testing Laboratory Results 07/15/25 06:14
[2025-07-15] MEDS: BUPIVACAINE 0.25% PF 30 ML VIAL EPI STA (06:55)
[2025-07-15] MEDS: fentANYL 2 MCG/ML BUPIVacaine 0.125%-NSS 100ML BAG EPI PRN (06:57)
[2025-07-15] MEDS: BUPIVACAINE 0.25% PF 30 ML VIAL ONE (08:17)
[2025-07-15] MEDS: fentANYL 2 MCG/ML BUPIVacaine 0.125%-NSS 100ML BAG ONE (08:18)
[2025-07-15] MEDS: LIDOCAINE 2%/EPINEPHRINE 1:200,000 20 ML PF ONE (08:18)
[2025-07-15] MEDS: SODIUM CHLORIDE 0.9% PF INJ 10 ML VIAL ONE (08:19)
[2025-07-15] MEDS: SODIUM CHLORIDE 0.9% PF INJ 10 ML VIAL EPI STA (08:19)
[2025-07-15] MEDS: LIDOCAINE 2%/EPINEPHRINE 1:200,000 20 ML PF EPI STA (08:20)
[2025-07-15] MEDS: OXYTOCIN 30 UNITS/NSS 30 UNITS/500 ML BAG IV PRN (09:15)
[2025-07-15] MEDS ORDERED: LIDOCAINE 2%/EPINEPHRINE 1:200,000 20 ML PF ONE (09:31)
[2025-07-15] MEDS ORDERED: NITROGLYCERIN 5 MG/ML 10 ML VIAL ONE (09:31)
--- NOTE | 2025-07-15 10:01 | Delivery Summary ---
Vaginal Delivery Summary Date of Service July 15, 2025 Vaginal Delivery Summary The patient dilated to complete and pushed to deliver a viable male infant Apgars 8 and 9 via over small vaginal laceration. Mouth and nose bulb suctioned at perineum. Shoulders and body delivered with ease. Infant was vigorous and crying at . Cord clamped at 30 seconds of life and to maternal abdomen where the cord was then doubly clamped and cut. Small vaginal laceration repaired with 4-0 vicryl in usual fashion. Dilute pitocin was begun but with no evidence of placenta separation, no bleeding or cord lengthening at about 12min post delivery, the dilute pitocin was stopped. Bladder was drained under sterile conditions for about 300cc. Placenta not palpated vaginally coming through cx. Subsequently attempt to deliver placenta ultimately resulted in avulsed cord. The uterus was explored and could not get into anterior plane of cx due to very contracted uterus. Attempt x several without success and therefore OR prepped to proceed with D&C and use of inhaled anesthetic agent. Anesthesia arrived and willing to attempt nitroglycerin iv push to help relax uterus and then able to get into anterior plane and cleave placenta. Swept x 2 with no retained tissue noted. US ordered to evaluate lining. IV dilute pitocin begun and hemostasis adequate. Cervix and sulci intact. QBL 158 cc. Mother and baby stable in recovery. I did speak with her spouse and her at bedside as soon as I felt pt would need OR evaluation and then after anesthesia gave iv nitroglycerin and was able to remove placenta, i updated spouse with pt at bedside. He was home caring for their other child. US ultimately did look at lining and no evidence of obvious retained tissue. Will give 3 doses of ancef. [facility] Vaginal Delivery Charge Delivery Type Details:
--- NOTE | 2025-07-15 10:03 | Communication Note ---
Date of Service: July 15, 2025 called emergently because the uterus was clamped down and the placenta retained. Pt was on monitors. i pushed 5 mL of 2% lidocaine with epi through the epidural. i then pushed 100 mcg of phenylepherine IV because pt has a low baseline bp, Pt was given two doses of [address] Lopez was able to remove the placenta. They will confirm with ultrasound
[2025-07-15] MEDS ORDERED: HYDROCORTISONE ACETATE 25 MG SUPP PR PRN (11:28)
[2025-07-15] MEDS ORDERED: OXYTOCIN 30 UNITS/NSS 30 UNITS/500 ML BAG IV PRN (11:28)
[2025-07-15] MEDS ORDERED: BENZOCAINE 20% SPRY 85 APPLN/85 GM CAN EXT PRN (11:28)
[2025-07-15] MEDS ORDERED: IBUPROFEN 600 MG TAB PO PRN (11:28)
--- NOTE | 2025-07-15 11:42 | Ultrasound Report ---
ULTRASOUND PELVIC LIMITED CLINICAL HISTORY: examination. Assess for retained product of conception. COMPARISON STUDY: Obstetrical ultrasound dated 07/14/2025. TECHNIQUE: Real-time, grayscale, and color flow sonography of the uterus is performed transabdominall y to assess for retained products of conception. Images are reviewed in the transverse and longitudin al planes. FINDINGS: The postgravid uterus is enlarged and heterogeneous in echotexture. The endometrium is hete rogeneous with complex fluid in the endometrial canal. No mass or abnormal color flow is identified w ithin the endometrial canal to indicate retained products of conception. IMPRESSION: 1. The uterus is enlarged and heterogeneous, typical for state. 2. There is no sonographic evidence of retained products of conception. ACT 112: Negative or not required by law. Electronically signed by: Rudy Gtz M.D. 07/15/2025 11:40 AM
[2025-07-15] MEDS: DOCUSATE SODIUM 100 MG CAP PO SCH (22:02)
[2025-07-16] MEDS: ACETAMINOPHEN 325 MG TAB PO PRN (02:20)
[2025-07-16 06:37] LABS: Hematocrit (blood only) 34.2 % (37.0-47.0); Hemoglobin 12.1 g/dl (12.0-16.0)
--- NOTE | 2025-07-16 08:16 | Obstetrical Progress Note ---
Date of Service July 16, 2025 Assessment & Plan (1) care and examination: stable doing well,routine care, baby rh neg, ri, . Day #:: 1 Subjective Ambulation: ambulating normally Voiding: no voiding problems Diet Tolerance:: regular diet Lochia:: Small Feeding Type:: breast feeding no concerns, no fever or chills, no bleeding issues baby has iv and in nursery Physical Exam Constitutional WD/WN, vitals as above Respiratory normal respiratory effort, lungs clear to auscultation Cardiovascular Rate/Rhythm: regular rate and regular rhythm Gastrointestinal (Abdomen) Inspection/Auscultation: abdomen normal to inspection Percussion/Palpation: abdomen soft Fundus firm 2cm down Musculoskeletal nt calves no edema Neurologic grossly normal Psychiatric A+Ox3, euthymic affect Results & Data Vital Signs (Past 12 Hours) Vital Signs Temp Pulse Resp BP Pulse Ox O2 Del Method 07/16/25 07:24 98.1 F 56 L 16 99/68 L 99 Room Air 07/16/25 03:41 98.1 F 57 L 16 100/64 96 Room Air 07/15/25 23:17 99.3 F 61 18 106/70 97 Room Air
[2025-07-16] MEDS: PRENATAL VITAMIN 1 TAB PO SCH (08:45)
[2025-07-16] MEDS: DIPHTHER/TETAN/PERTUS Vaccine (Tdap, Adol/Adult) 0.5mL IM ONE (09:16)
--- NOTE | 2025-07-17 06:46 | Obstetrical Progress Note ---
Date of Service July 17, 2025 Assessment & Plan (1) care and examination: Plan: 39yo day 2 from [facility] Fells well today Continue post- care Encourage ambulation and Pain controlled with Tylenol Vital Signs stable Hopeful discharge home today Follow up with [facility] [place] [facility] provider in 6 weeks Admission and Anticipated Discharge Date Admission Date: July 15, 2025 Supervising Physician Co-Signing Physician Notes Resident Physician Supervision Note: I was present with Dr. Armstrong during the history and exam. I discussed the case with the resident and agree with the findings and plan as documented in the note. Any exceptions or clarifications are listed here: stable routine care, eating, voiding ambulating, no pain issues. no bleeding issues. some uterine cramping. abd soft ff 3 down nt, nt calves, ppd#2 s/p , will dc home, instructions reviewed. f/u 6wk pp. may need to go to nesting, baby off iv this am so hopefully both can be dc'd later today. she is reassured she can stay here all day if needed. Documented By: Mine Lopez MD, FACOG Subjective 39yo day 2 from [facility] Ambulation: ambulating normally Voiding: no voiding problems Diet Tolerance:: regular diet Lochia:: Small Feeding Type:: breast feeding Pain controlled: 2/10 on Tylenol prn no concerns, no fever or chills, no bleeding issues, no CP or SOB, no headache Physical Exam Physical Exam: General: patient resting comfortably, NAD, non-toxic in appearance, answers questions appropriately Skin: warm, dry, intact Heart: S1/S2 heard, regular, no m/r/g Lungs: equal air entry bilaterally, no rales/rhonchi/wheezes Abd: Normoactive BS, soft, NT/ND, uterine fundus firm 3cm below umbilicus Ext: warm, no clubbing/cyanosis or edema, Leonarda's neg Neuro: nonfocal, patient AAOx4, speech intact, no facial droop, moving all extremities on command Results & Data Vital Signs (Past 12 Hours) Vital Signs Temp Pulse Resp BP Pulse Ox O2 Del Method 07/17/25 03:54 36.8 C 59 L 16 101/65 97 Room Air 07/16/25 21:20 37.1 C 68 16 99/66 L 97 Room Air Resident Activity Tracking Resident Involvement: Resident Care Provided Care Provided: OB Delivery
[2025-07-17 08:50] VITALS: RESP 17
[2025-07-17 16:08] VITALS: BP 113/76; PULSE 80; TEMP 98.8; O2SAT 96
== END 2025-07-17 20:00 | disposition home or self-care (01) | DRG 807 ==
LOC: OPB 05:40 → 4S1 05:44 → 4E2 13:41